=== PATIENT | female | born 1985 | race Two or more races ===

== ENCOUNTER 2024-05-11 20:43 | Emergency (ER) | payer MEDICAID, OTHER ==
[~2024-05-11] VITALS: Ht 157.5 cm; Wt 109.4 kg
[2024-05-11 21:30] VITALS: RESP 12; O2SAT 97
[2024-05-11] MEDS: ALBUTEROL SULF 2.5 MG/0.5ML(0.5%) NEB SOLN NEB ONE (21:47)
[2024-05-11] MEDS: IPRATROPIUM BROM 0.5 MG/2.5ML INH SOL NEB ONE (21:47)
[2024-05-11] MEDS: DexAMETHasone SOD PHOS 10MG/1ML VIAL INJ IM ONE (21:48)
[2024-05-11 22:21] LABS: Rapid Influenza A Negative (Negative); Rapid Influenza B Negative (Negative)
[2024-05-11 22:22] LABS: COVID19 ANTIGEN SOFIA FIA NEGATIVE (NEGATIVE)
[2024-05-11 23:00] VITALS: BP 147/102; PULSE 104; RESP 17; TEMP 98.2; O2SAT 97
[2024-05-11] MEDS ORDERED: LORA-622 PO (23:31)
[2024-05-11] MEDS ORDERED: ALBU108A5 IN (23:31)
[2024-05-11] MEDS ORDERED: BENZ100C97 PO (23:31)
== END 2024-05-12 00:15 | disposition home or self-care (01) ==
LOC: ER 20:43
DX: J45.901 Unspecified asthma with (acute) exacerbation (principal); J39.8 Other specified diseases of upper respiratory tract; E66.01 Morbid (severe) obesity due to excess calories; Z68.41 Body mass index [BMI] 40.0-44.9, adult; Z20.822 Contact with and (suspected) exposure to COVID-19
CPT/HCPCS: 36415; 71045; 87426; 87804; 94640; 96372; 99285; J1100